=== PATIENT | male | born 1940 | race Caucasian/White ===

== ENCOUNTER 2017-04-08 10:25 | Day surgery (SDC) | payer OTHER ==
[~2017-04-08] VITALS: Ht 175.3 cm; Wt 105.3 kg
[~2017-04-08 10:25] MED LIST: ACET500 PO; ASCO500 PO; ASPI325; ASPI81EC PO; BENAML10/2 PO; BENAML10/5; CARV3.125; CLOP75; CLOP75 PO; DONE5; DOXA4 PO; ENABLEX; GINKGO BILOBA; GLIM4; HYDACE5 PO; HYDCHL12.5; HYDCHL50 PO; Humalog100 UNIT/1 SC; IBUP600 PO; INSDET100; INSLI100I SC; INSULANI; INSULANI SC; INSULANPEN SC; IRON; LOVA20 PO; LOVA40 PO; METF500 PO; METO25ER PO; METO50ER PO; MULVITMIND PO; MULVITMINF; RAMI5; RXHYDACE PO; TOBR.3OPSO OP; TOCO400; TRAN4; Tylenol325 MG PO; [UNRECOGNIZED DRUG - REMARK]
[2017-04-08] MEDS ORDERED: GABA300 (11:18)
[2017-04-08] MEDS ORDERED: JARDIANCE10 MG (11:18)
== END 2017-04-08 12:42 | disposition home or self-care (01) ==
LOC: ORSCSDS 10:25
PROVIDERS: Surgery
PROC: 0DBL8ZX Excision of Transverse Colon, Via Natural or Artificial Opening Endoscopic, Diagnostic (ICD-10-PCS; principal; 2017-04-08 11:30)
PROC: 0DBP8ZX Excision of Rectum, Via Natural or Artificial Opening Endoscopic, Diagnostic (ICD-10-PCS; principal; 2017-04-08 11:30)
DX: Z86.010 Personal history of colon polyps (principal); D12.3 Benign neoplasm of transverse colon; D12.8 Benign neoplasm of rectum; E11.9 Type 2 diabetes mellitus without complications; I25.10 Atherosclerotic heart disease of native coronary artery without angina pectoris; I10 Essential (primary) hypertension; E78.5 Hyperlipidemia, unspecified; Z86.73 Personal history of transient ischemic attack (TIA), and cerebral infarction without residual deficits; G91.0 Communicating hydrocephalus; Z79.4 Long term (current) use of insulin; Z79.899 Other long term (current) drug therapy
CPT/HCPCS: 82947; 88305; 93005; 93010; J7120

== ENCOUNTER 2018-10-07 10:09 | Day surgery (SDC) | payer OTHER ==
[~2018-10-07] VITALS: Ht 170.2 cm; Wt 218.8 kg
[~2018-10-07 10:09] MED LIST changes: +Aspirin EC81 MG PO; -BENAML10/2 PO; +GABA300; +JARDIANCE10 MG PO; +Lotrel 10-20 M1 EACH PO
--- NOTE | 2018-10-07 11:50 | NUR ---
10/07/18 1150 Genia Badillo PATIENTS BLOOD GLUCOSE 64. PT NON-SYMPTOMATIC, NOTIFIED AND ORDERED D-5 IN LR TO BE INFUSED INTO IV. WILL REPORT TO ENDO RN
--- NOTE | 2018-10-07 13:14 | NUR ---
10/07/18 1314 Skye Mitchell SALINE 17CC INJECTED INTO POLYPS
--- NOTE | 2018-10-07 13:46 | NUR ---
10/07/18 1346 Nina Saunders PT DENIES ANYTHING PO POST PROCEDURE.
== END 2018-10-07 13:47 | disposition home or self-care (01) ==
LOC: ORSCSDS 10:09
PROVIDERS: Internal Medicine Gastroenterology
PROC: 0DBP8ZX Excision of Rectum, Via Natural or Artificial Opening Endoscopic, Diagnostic (ICD-10-PCS; principal; 2018-10-07 11:30)
PROC: 0DBL8ZX Excision of Transverse Colon, Via Natural or Artificial Opening Endoscopic, Diagnostic (ICD-10-PCS; principal; 2018-10-07 11:30)
DX: R19.7 Diarrhea, unspecified (principal); D12.3 Benign neoplasm of transverse colon; D12.8 Benign neoplasm of rectum; K57.30 Diverticulosis of large intestine without perforation or abscess without bleeding; K64.8 Other hemorrhoids; I10 Essential (primary) hypertension; E11.9 Type 2 diabetes mellitus without complications; Z86.73 Personal history of transient ischemic attack (TIA), and cerebral infarction without residual deficits; E78.5 Hyperlipidemia, unspecified; Z79.899 Other long term (current) drug therapy; Z79.82 Long term (current) use of aspirin
CPT/HCPCS: 82947; 88305; J2704; J7120; J7799

== ENCOUNTER 2018-12-22 17:41 | Emergency (ER) | payer OTHER ==
[~2018-12-22] VITALS: Ht 177.8 cm; Wt 115.7 kg
[2018-12-22 18:32] LABS: BASOPHILS ABSOLUTE AUTO 0.04 K/mm3 (0.00-0.23); BASOPHILS PERCENT AUTO 1 % (0-2); EOSINOPHILS ABSOLUTE AUTO 0.23 K/mm3 (0.00-0.68); EOSINOPHILS PERCENT AUTO 3 % (0-6); Hematocrit 43.4 % (37.0-53.0); Hemoglobin 13.4 g/dL (13.5-17.5); IMMATURE GRAN ABSOLUTE AUTO 0.04 K/mm3 (0.00-0.10); IMMATURE GRAN PERCENT AUTO 1 % (0-1); LYMPHOCYTES ABSOLUTE AUTO 0.59 K/mm3 (0.84-5.20); LYMPHOCYTES PERCENT AUTO 8 % (21-46); MONOCYTES ABSOLUTE AUTO 0.45 K/mm3 (0.16-1.47); MONOCYTES PERCENT AUTO 6 % (4-13); Mean Corpuscular HGB 26.8 pg (26.0-34.0); Mean Corpuscular HGB Conc 30.9 g/dL (31.5-36.5); Mean Corpuscular Volume 87 fL (80-100); Mean Platelet Volume 10.8 fL (9.1-12.4); NEUTROPHILS ABSOLUTE AUTO 5.99 K/mm3 (1.96-9.15); NEUTROPHILS PERCENT AUTO 82 % (41-73); Platelet Count 176 K/mm3 (150-400); RDW Coefficient Variation 13.5 % (11.7-14.2); White Blood Cell Count 7.34 K/mm3 (4.00-11.30)
[2018-12-22 18:46] LABS: Alanine Aminotransfer (ALT/SGP 25 U/L (12-78); Albumin, Blood 3.5 g/dL (3.4-5.0); Alk Phos 81 U/L (50-136); Anion Gap 4 mmol/L (6-16); Aspartate Aminotrans (AST/SGOT 23 U/L (12-37); Bilirubin, Total 0.4 mg/dL (0.1-1.0); Blood Urea Nitrogen 21 mg/dL (8-24); Bun/Creatinine Ratio 20.2 (12.0-20.0); CO2, Blood 29 mmol/L (21-32); Chloride, Blood 105 mmol/L (98-108); Creatinine, Blood 1.04 mg/dL (0.60-1.20); Ethanol (Alcohol), Blood, Med <3 mg/dL; Globulin, Blood 3.6 g/dL (2.2-4.0); Glomerular Filtration Rate >60 (60-); Glucose, Blood 148 mg/dL (70-99); Potassium, Blood 4.3 mmol/L (3.5-5.5); Sodium, Blood 138 mmol/L (136-145); Total Protein, Blood 7.1 g/dL (6.4-8.2); Troponin I <0.015 ng/mL (0.000-0.040)
[2018-12-22] MEDS ORDERED: LATA.005SO BOTHEYES (19:53)
[2018-12-22] MEDS ORDERED: TIMO.5OPSO BOTHEYES (19:53)
[2018-12-22] MEDS ORDERED: METF500C PO (19:54)
[2018-12-22] MEDS ORDERED: INSULANPEN SC (19:54)
[2018-12-22] MEDS ORDERED: METO50ER PO (19:55)
[2018-12-22] MEDS ORDERED: Humalog100 UNIT/3 SC (19:55)
[2018-12-22] MEDS ORDERED: MICROZIDE12.5 MG PO (19:55)
[2018-12-22] MEDS ORDERED: FERSU300 PO (19:56)
[2018-12-22] MEDS ORDERED: Doxazosin Mesyla8 MG PO (19:58)
[2018-12-22] MEDS ORDERED: GABA300 PO (19:59)
[2018-12-22] MEDS ORDERED: LOVA40 PO (20:00)
[2018-12-22 20:11] LABS: Source, Urine Voided
[2018-12-22 20:19] LABS: Appearance, Urine Clear (Clear); Bilirubin, Urine Neg (Neg); Blood, Urine Neg (Neg); Color, Urine Yellow (P-Yellow); Glucose Qualitative, Urine 4+ (Neg); Ketones, Urine Neg (Neg); Leukocyte Esterase, Urine Neg (Neg); Nitrite, Urine Neg (Neg); Protein, Urine Neg (Neg); Urobilinogen, Urine NORM (Normal)
== END 2018-12-22 23:15 | disposition home or self-care (01) ==
LOC: ER 17:41
PROVIDERS: Emergency Medicine
DX: H55.00 Unspecified nystagmus (principal); E87.8 Other disorders of electrolyte and fluid balance, not elsewhere classified; F03.90 Unspecified dementia, unspecified severity, without behavioral disturbance, psychotic disturbance, mood disturbance, and anxiety; Z86.73 Personal history of transient ischemic attack (TIA), and cerebral infarction without residual deficits; I10 Essential (primary) hypertension; E11.9 Type 2 diabetes mellitus without complications; Z88.5 Allergy status to narcotic agent; Z79.899 Other long term (current) drug therapy; Z79.82 Long term (current) use of aspirin; Z79.02 Long term (current) use of antithrombotics/antiplatelets; Z79.4 Long term (current) use of insulin
CPT/HCPCS: 70450; 70496; 70498; 71045; 80053; 81003; 83880; 84443; 84484; 85025; 93005; 93010; 99285-25; G0480; Q9967

== ENCOUNTER → 2021-08-27 | Outpatient (CLI) | payer OTHER ==
[~2021-08-27] MED LIST changes: +Doxazosin Mesyla8 MG PO; +GABA300 PO; +HUMALOG KW100 UNIT/1 SC; +HUMALOG100 UNIT/1; +Hair, Skin & N1 EACH PO; +IRON PO; +LATA.005SO BOTHEYES; +LOTREL 10-20 M1 EACH PO; +MELATONIN PO; +METF500C PO; +MICROZIDE12.5 MG PO; -MULVITMIND PO; +TIMO.5OPSO BOTHEYES
[2021-08-27 13:25] LABS: Source, Urine Clean Catch
[2021-08-27 14:57] LABS: Appearance, Urine Clear (Clear); Bilirubin, Urine Neg (Neg); Blood, Urine Neg (Neg); Color, Urine Yellow (P-Yellow); Glucose Qualitative, Urine Neg (Neg); Ketones, Urine Neg (Neg); Leukocyte Esterase, Urine Neg (Neg); Nitrite, Urine Neg (Neg); Protein, Urine Neg (Neg); Urobilinogen, Urine NORM (Normal)
== END | disposition home or self-care (01) ==
LOC: LAB SHORT 12:30 → LAB 12:30
PROVIDERS: Hospitalist
DX: N39.0 Urinary tract infection, site not specified (principal)
CPT/HCPCS: 81003

== ENCOUNTER → 2021-10-15 | Outpatient (CLI) | payer OTHER ==
[2021-10-15 11:47] LABS: Source, Urine Clean Catch
[2021-10-15 12:31] LABS: Bilirubin, Urine Neg (Neg); Blood, Urine Neg (Neg); Glucose Qualitative, Urine 2+ (Neg); Ketones, Urine Neg (Neg); Leukocyte Esterase, Urine Neg (Neg); Nitrite, Urine Neg (Neg); Protein, Urine Neg (Neg); Specific Gravity, Urine 1.015 (1.003-1.022); Urobilinogen, Urine NORM (Normal)
[2021-10-15 12:36] LABS: Appearance, Urine Clear (Clear); Color, Urine Yellow (P-Yellow)
== END | disposition home or self-care (01) ==
LOC: LAB 11:44 → LAB SHORT 11:44
PROVIDERS: Hospitalist
DX: N39.0 Urinary tract infection, site not specified (principal)
CPT/HCPCS: 81003

== ENCOUNTER → 2021-12-19 | Outpatient (CLI) | payer OTHER ==
[2021-12-19 17:51] LABS: Source, Urine Clean Catch
[2021-12-19 18:12] LABS: Appearance, Urine Clear (Clear); Bilirubin, Urine Neg (Neg); Blood, Urine Neg (Neg); Color, Urine Yellow (P-Yellow); Glucose Qualitative, Urine Neg (Neg); Ketones, Urine Neg (Neg); Leukocyte Esterase, Urine Neg (Neg); Nitrite, Urine Neg (Neg); Protein, Urine Neg (Neg); Urobilinogen, Urine NORM (Normal)
== END | disposition home or self-care (01) ==
LOC: LAB SHORT 16:30 → LAB 16:30
PROVIDERS: Hospitalist
DX: N39.0 Urinary tract infection, site not specified (principal)
CPT/HCPCS: 81003